=== PATIENT | female | born 1975 | race Caucasian/White ===

== ENCOUNTER 2019-12-15 21:29 | Emergency (ER) | payer BC ==
[~2019-12-15] VITALS: Ht 170.2 cm; Wt 142.9 kg
[2019-12-15 21:47] VITALS: Ht 170.2 cm; Wt 142.9 kg
[2019-12-16 00:10] LABS: BASOPHIL % 0.5 % (0-2); PLATELET COUNT 259 x10^3mcL (130-400)
[2019-12-16 00:13] LABS: RED CELL DISTRIBUTION WIDTH 17.7 % (11.5-14.5)
[2019-12-16 00:21] LABS: CALCIUM 9.2 mg/dL (8.5-10.1); CARBON DIOXIDE 27.6 mmol/L (21-32); CHLORIDE SERUM 99 mmol/L (98-107); CREATININE SERUM 0.7 mg/dL (0.6-1.0); GFR1 > 60 mL/min; GLUCOSE SERUM 286 mg/dL (74-106); POTASSIUM SERUM 3.8 mmol/L (3.5-5.1); SODIUM SERUM 134 mmol/L (136-145)
[2019-12-16 00:34] LABS: ALBUMIN 3.3 g/dL (3.4-5.0); ALKALINE PHOSPHATASE 117 U/L (46-116); ALT/SGPT 20 U/L (14-59); AST/SGOT 10 U/L (15-37); BILIRUBIN TOTAL 0.3 mg/dL (0.20-1.00); TOTAL PROTEIN, SERUM 7.8 g/dL (6.4-8.2)
[2019-12-16 02:08] VITALS: BP 131/76
== END 2019-12-16 02:05 | disposition home or self-care (01) ==
LOC: ED 21:29
PROVIDERS: Emergency Medicine
DX: R00.0 Tachycardia, unspecified (principal); R00.2 Palpitations; I10 Essential (primary) hypertension; E11.9 Type 2 diabetes mellitus without complications
CPT/HCPCS: 36415; 83880; 84439; 85378; Q0092